=== PATIENT | male | born 1995 | race Caucasian/White ===

== ENCOUNTER 2021-04-05 04:34 | Emergency (ER) | payer BC, OTHER ==
[2021-04-05 05:00] VITALS: BP 129/67; PULSE 88; TEMP 100.8; BMI 24.4
[2021-04-05] MEDS ORDERED: ACETAMINOPHEN 500 MG TABLET (FP) PO ONE (05:12)
[2021-04-05] MEDS ORDERED: ACETAMINOPHEN 500 MG TABLET (FP) ONE (05:13)
[2021-04-05] MEDS ORDERED: LOPERAMIDE HCL 1 MG/5 ML UNIT DOSE CUP PO ONE (05:22)
[2021-04-05] MEDS ORDERED: MAG HYDROX/AL HYDROX/SIMETH 30 ML UNIT-DOSE CUP PO ONE (05:23)
[2021-04-05] MEDS ORDERED: MAG HYDROX/AL HYDROX/SIMETH 30 ML UNIT-DOSE CUP ONE (05:24)
[2021-04-05] MEDS ORDERED: LOPERAMIDE HCL 2 MG CAPSULE ONE (05:24)
== END 2021-04-05 05:31 | disposition home or self-care (01) ==
LOC: FER 04:34
DX: J02.9 Acute pharyngitis, unspecified (principal)
CPT/HCPCS: 87070; 87804; 87807; 99283-25; C9803; U0003; U0005